=== PATIENT | female | born 1945 | race Caucasian/White ===

== ENCOUNTER → 2025-07-11 13:20 | Outpatient (BNVA) | payer MEDICARE, SELFPAY | PROVIDERS: Visit Provider Psychiatry & Neurology Neurology | DX: R60.0 Localized edema (principal); G62.9 Polyneuropathy, unspecified; E11.59 Type 2 diabetes mellitus with other circulatory complications; I10 Essential (primary) hypertension | CPT/HCPCS: 99205 ==